=== PATIENT | male | born 1990 ===

== ENCOUNTER 2019-12-18 11:16 | Emergency (ER) | payer SELFPAY ==
[~2019-12-18] VITALS: Ht 182.9 cm; Wt 69.0 kg
[2019-12-18] MEDS ORDERED: ibuprofen tablet 400 MG TABLET PO ONE (12:25)
--- NOTE | 2019-12-18 12:37 | NUR ---
PATIENT WAS UNCOPERATIVE, REFUSED TO LAY STILL AND REFUSED TO DO EXAM. PT JUMPED UP DURING SCAN AND INSISTED ON ENDING IT.
--- NOTE | 2019-12-18 12:40 | NUR ---
Pt refused to have CT scan completed. Pt eloped after returning to room. Pt was not willing to stay to discuss further with with provider. Randal Menjivar made aware.
== END 2019-12-18 12:40 | disposition left against medical advice (07) ==
LOC: ER 11:16
DX: S09.93XA Unspecified injury of face, initial encounter (principal); Z88.0 Allergy status to penicillin; Y08.89XA Assault by other specified means, initial encounter; Y93.89 Activity, other specified; Y92.89 Other specified places as the place of occurrence of the external cause; Y99.8 Other external cause status
CPT/HCPCS: 70486; 99281; 99284